=== PATIENT | male | born 1950 | race Caucasian/White ===

== ENCOUNTER 2023-08-28 09:37 | Outpatient (OUT) | payer MEDICARE, SELFPAY ==
--- NOTE | 2023-08-28 | VEIN_ITS ---
Patient: DOMINGUEZ GOMES Exam Date: 08/28/2023 : 1950 Gender:M Ordering : DR TORO NUNEZ M.D. Admission #: [id number] Family : Order #: [id number] CLICK HERE TO VIEW EXAM RADIOLOGY REPORT PROCEDURE: VC EXT VENOUS REFLUX ANILA LMTD COMPARISON: None. INDICATIONS: Pain due to varicose veins of bilateral legs I83.813 TECHNIQUE: Duplex imaging of the lower extremity to assess the deep and superficial venous system for the presence of deep or superficial venous incompetence and to document the location and severity of disease. The study includes evaluation of the great saphenous vein (GSV), anterior accessory saphenous vein (AASV) and small saphenous vein (SSV). Patient scanned in reverse Trendelenburg and standing. 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 Compressibility: Partial thrombus in one of the femoral veins. Flow: Severe deep venous reflux. Slurry Tank Tender: Distal medial lower leg 4.7 mm with 1.7s reflux. Popliteal fossa off of gastroc measures 5.8 mm with 1.1s reflux. Tech Note: Calf veins not well visualized due to edema. Incompetent varicose vein proximal medial lower leg measures 4.6 mm with 0.5s reflux. Mid medial lower leg varicosity measures 6.9 mm with 2.0s reflux. Varicose vein mid posterior lower leg measures 4.0 mm with 0.8s reflux. LEFT LOWER EXTREMITY: Saphenofemoral Junction Reflux: Yes 11.4 mm 1.8 sec GSV: Diam (mm) Reflux/Time (sec) Proximal Thigh 7.4 Yes 1.6 Mid Thigh 5.1 Yes 1.5 Distal Thigh 8.2 Yes 1.2 Prox Calf 5.1 Yes 1.4 Mid Calf 3.2 Yes 1.0 Saphenopopliteal Junction Relux: 3.3 mm Yes 0.2 SSV: Proximal Calf 2.6 Yes 0.3 Mid Calf 3.6 Yes 0.3 AASV: Proximal Thigh 7.8 Yes 2.5 Mid Thigh 4.7 Yes 0.3 Distal Thigh Thrombi: No acute or chronic thrombus. Compressibility: Normal. Flow: Mild to moderate deep venous reflux. Slurry Tank Tender: Proximal medial lower leg 3.3 mm with 0.8s reflux. Two perfs distal medial thigh 3.8 mm and 3.0 mm with 4.6s and 4.1s reflux. Tech Note: Hypoechoic area distal medial lower leg in soft tissue measures 1.6 x 0.6 x 0.6 cm. Calf veins not well visualized due to edema. Incompetent varicose vein proximal medial lower leg measures 6.0 mm with 2.0s reflux. Distal medial lower leg varicosity measures 4.7 mm with 4.2s reflux. CONCLUSION: 1. Moderate right and mild to moderate left great saphenous vein venous insufficiency with dilatation and saphenofemoral junction reflux 2. Moderate bilateral anterior accessory saphenous vein venous insufficiency with dilatation 3. Severe right and moderate left deep vein reflux 4. Bilateral incompetent perforating veins 5. Bilateral incompetent varicose veins Dictated by: Toro Nunez MD on 08/28/2023 at 11:24 Approved by: Toro Nunez MD on 08/28/2023 at 11:26
--- NOTE | 2023-08-28 | VEIN_ITS ---
Patient: DOMINGUEZ GOMES Exam Date: 08/28/2023 : 1950 Gender:M Ordering : DR TORO NUNEZ M.D. Admission #: [id number] Family : Order #: [id number] CLICK HERE TO VIEW EXAM RADIOLOGY REPORT PROCEDURE: [facility] - OFFICE VISIT INITIAL COMPARISON: None. PROGRESS NOTES: 73-year-old male who presents with a 10 year history of lower extremity pain swelling and varicose veins. The patient's symptoms have progressed over the last several years. The patient's left side is worse than the right. The patient describes swelling and heaviness as if both of his feet or in concrete blocks. This is affected the patient's activities of daily living as he is no longer able to exercise as he would like. The patient's symptoms are exacerbated by prolonged sitting and standing and are partially relieved by rest, leg elevation and support stockings which she has worn intermittently for years. The patient denies any signs and symptoms to suggest arterial ischemia. The patient describes a family history significant for heart disease in his mother. Cancer in his father. The patient does not drink alcohol. The patient has never smoked. No illicit drug use. Past medical history significant for sleep apnea, hypertension and type 2 diabetes. The patient does have an episode of acute right leg pulmonary embolus, a provoked clot after sitting in a car for 16 hours approximately 10 years ago. The patient has not had an additional episode of deep vein thrombus since then and is not currently on anticoagulation. No history of pulmonary embolus. See separate history and physical for medication list. No prior treatment for varicose or spider veins. Nursing notes were reviewed. After history and physical exam I discussed at length the pathophysiology of venous hypertension and possible treatments, therapies and strategies available. We discussed at length the importance of elevating the lower extremities above the level of the heart, increased physical activity and compression stocking use. We discussed conservative treatment with bilateral thigh-high 20-30 mm compression stockings. We discussed surgical interventions including ligation and stripping and phlebectomy. We discussed intravenous laser ablation and micro foam chemical ablation at length. Risks benefits and alternatives were explained and the patient's questions were answered. Ultrasound venous reflux study performed the same day was discussed at length with the patient. The report demonstrates moderate right and mild to moderate left great saphenous vein venous insufficiency. Moderate bilateral anterior accessory saphenous vein venous insufficiency. Moderate to severe bilateral deep vein reflux. Bilateral incompetent perforating and varicose veins PHYSICAL EXAM: The right leg demonstrates moderate diffuse hemosiderin staining below the knee. Mild to moderate subcutaneous edema. Multiple varicose and reticular veins. No active ulceration. The left leg demonstrates moderate diffuse hemosiderin staining below the knee. Moderate subcutaneous edema. Multiple varicose and reticular veins. No active ulceration. Both thighs, legs and feet were symmetrically warm to the touch. Good posterior tibial and dorsalis pedis pulses were present bilaterally. VEIN/VC Facility EST Comprehensive IMPRESSION: 1. Moderate right mild to moderate left great saphenous, moderate bilateral anterior accessory saphenous vein venous insufficiency with dilatation and saphenofemoral junction reflux 2. Moderate bilateral lower extremity varicose veins 3. Mild to moderate right and moderate left lower extremity subcutaneous edema 4. Moderate bilateral hemosiderin staining 5. CEAP: C4a, Ep, As, Pr PLAN: 1. Endovenous laser ablation left great saphenous vein followed by right great saphenous vein followed left anterior accessory saphenous vein followed by right anterior accessory saphenous vein 2. Micro foam chemical ablation bilateral incompetent varicose veins 3. terminal operations supervisor use of bilateral thigh-high 20-30 mm compression stockings for deep vein reflux 4. Elevated legs and increased physical activity for symptomatic relief Nurse notes, history and physical were reviewed and confirmed, see attached forms. The nurse was present throughout the physical exam and consultation Dictated by: Toro Nunez MD on 08/28/2023 at 13:29 Approved by: Toro Nunez MD on 08/28/2023 at 13:35
== END 2023-08-28 09:38 | disposition home or self-care (01) ==
LOC: VC 09:37
PROVIDERS: PCP Radiology Diagnostic Radiology; Visit Provider Radiology Diagnostic Radiology
DX: I87.001 Postthrombotic syndrome without complications of right lower extremity (principal)
CPT/HCPCS: 93970; G0463